=== PATIENT | male | born 1995 | race Caucasian/White ===

== ENCOUNTER 2017-07-11 14:32 | Emergency (ER) | payer OTHER ==
[~2017-07-11] VITALS: Ht 172.7 cm; Wt 89.6 kg
[2017-07-11 14:55] VITALS: BP 156/103; PULSE 96; TEMP 37.1; O2SAT 99; Ht 172.7 cm; Wt 89.6 kg
== END 2017-07-11 16:30 | disposition left against medical advice (07) ==
LOC: C.EDB 14:34

== ENCOUNTER 2017-07-15 13:02 | Emergency (ER) | payer OTHER ==
[~2017-07-15] VITALS: Ht 172.7 cm; Wt 87.1 kg
[2017-07-15 13:07] VITALS: TEMP 36.8; Ht 172.7 cm; Wt 87.1 kg
[2017-07-15] MEDS ORDERED: SODIUM CHLORIDE 0.9% 1000ML 1,000 ML IV STA (13:34)
[2017-07-15] MEDS ORDERED: ACETAMINOPHEN IV 100 ML IV STA (13:34)
[2017-07-15] MEDS ORDERED: ONDANSETRON INJ 2 MG/ML 2 ML VIAL IV STA (13:34)
[2017-07-15 14:07] LABS: BASO % 0.3 %; BASO ABS # 0.03 K/uL (0-0.2); EOS % 0.3 %; EOS ABS # 0.04 K/uL (0-0.5); HEMATOCRIT 46.7 % (42-52); IG# 0.03 K/uL (0.00-0.02); LYMPH % 11.7 %; LYMPH ABS # 1.37 K/uL (1.2-3.4); MEAN CELL VOLUME 83.8 fL (80-100); MEAN CORPUSCULAR HEMOGLOBIN 30.5 pg (25-34); MEAN CORPUSCULAR HGB CONC 36.4 g/dl (32-36); MEAN PLATELET VOLUME 9.4 fL (7.4-10.4); MONO ABS # 0.94 K/uL (0.11-0.59); NEUT % 79.4 %; NEUT ABS # 9.28 K/uL (1.4-6.5); PLATELET COUNT 185 K/uL (130-400); RED CELL DISTRIBUTION WIDTH CV 12.5 % (11.5-14.5); RED CELL DISTRIBUTION WIDTH SD 37.7 fL (36.4-46.3); WHITE BLOOD COUNT 11.69 K/uL (4.8-10.8)
--- NOTE | 2017-07-15 14:11 | EMERGENCY ROOM VISIT NOTE ---
ED Visit Note First contact with patient: 13:13 CHIEF COMPLAINT: Right upper quadrant pain and rectal pain HISTORY OF PRESENTING ILLNESS: This is a 22-year-old male who presents emergency department with complaint of right upper quadrant pain and rectal pain. He states that he was in [place] for spring last week, he started getting some symptoms of nausea, vomiting, and diarrhea on Monday night. His right upper quadrant pain also started at that time and has gotten progressively worse. He states that his vomiting and diarrhea have improved and he has not had any for the past 3 days. However, for the past few days he has noticed some pressure and pain in his rectum, this has gotten significantly worse since yesterday to the point that he cannot sit down and has severe pain when he tries to move his bowels. He states that he did use a suppository to help with rectal pain, but denies any other anal penetration. He denies any lower abdominal pain. He denies any blood in the stool. He reports the pain in his rectum is sharp, constant, 9/10. He reports his right upper quadrant abdominal pain is constant, dull ache, worse with eating, 5/10. He has taken aspirin for his symptoms with minimal relief. He has had some associated chills , but denies any fevers. 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 He states that he is monitored by a GI specialist in his home country of [place], and does not take any medications currently. He denies any new medications. He does admit to drinking more alcohol than usual during spring. He states he ate a lot of local food, but his friends with him ate all of the same food that he did and they did not become ill. He denies any headaches, vision changes, neck pain or stiffness, chest pain, shortness of breath, dysuria or urinary frequency , penile discharge, or rash. He denies concern for sexually transmitted infections. REVIEW OF SYSTEMS: A complete 10 point review of systems was reviewed with the patient with pertinent positives and negatives as per history of present illness. All else were negative. PAST MEDICAL HISTORY: Hepatitis SOCIAL HISTORY: Lives at home. He is a [employer] student from [place]. He vapes, admits to occasional alcohol, denies any recreational drug use. ALLERGIES: No known allergies. PHYSICAL EXAM: CONSTITUTIONAL: Pleasant and cooperative. No acute distress, but appears uncomfortable and in pain. Mildly dehydrated, but otherwise well appearing and well nourished. HEENT: Normocephalic, atraumatic. Pupils equal, round and reactive to light, EOMI. TMs normal. Pharynx normal. Tacky mucous membranes. NECK: Supple, full active range of motion without discomfort. RESPIRATORY: Clear to auscultation bilaterally with no wheezing, crackles, rhonchi or stridor. Equal expansion bilaterally. CARDIOVASCULAR: Regular rate and rhythm with no murmurs, rubs or gallops. Normal peripheral perfusion. No edema. GASTROINTESTINAL: Soft, mildly tender in the right upper quadrant and epigastric region, otherwise abdomen is nontender to palpation, nondistended. No rebound tenderness or guarding. No palpable masses or HSM. Bowel sounds present in all quadrants. No CVA tenderness. DIGITAL RECTAL EXAM: There is an area of swelling, erythema, and tenderness to palpation extending from the anus, fluctuant. Fluctuance and tenderness slightly extends internally. No hemorrhoids or fissures. Prostate is not tender to palpation, not boggy or enlarged. No stool within the rectum to test for guaiac. Normal rectal tone. MUSCULOSKELETAL: Full range of motion of all joints without discomfort. INTEGUMENTARY: No rash or other significant dermatologic conditions noted. NEUROLOGIC: Alert and oriented X 4 with normal affect. No focal neurologic deficits noted. Normal strength and sensation in all 4 extremities. Normal speech. Normal gait observed. ED COURSE AND MEDICAL DECISION MAKING: CC: Patient presenting with complaint of right upper quadrant abdominal pain and rectal pain DIFFERENTIAL DIAGNOSIS: Includes, but not limited to gastroenteritis, gastritis , peptic ulcer disease, hepatitis, cholecystitis, cholelithiasis, pancreatitis, food poisoning, intestinal parasite, hemorrhoid, anal fissure, alejandra-analrectal abscess, prostatitis, UTI, intra-abdominal abscess, among others. INTERPRETATION OF LABS: Mild leukocytosis with left shift, no anemia, no significant electrolyte abnormalities, normal renal function, normal liver enzymes and lipase. UA consistent with dehydration, otherwise negative. IMAGING: ABD/PELVIS IV CONTRAST ONLY CT DOSE: 491.21 mGy.cm HISTORY: Pain concern for perirectal abscess, prostatitis, hepatitis TECHNIQUE: Multiaxial CT images of the abdomen and pelvis were performed following the use of intravenous contrast. A dose lowering technique was utilized adhering to the principles of ALARA. COMPARISON STUDY: None. FINDINGS: The lung bases are clear. The liver, spleen, gallbladder, pancreas, kidneys, and adrenal glands are within normal limits. No bowel wall thickening or obstruction. The pelvic organs are unremarkable. No suspicious lytic or blastic osseous lesions. Moderate wall thickening of the rectum with a trace amount of perirectal infiltrative change near the anal verge. There are findings of a 1.3 x 1.0 hypodensity adjacent to the anal verge in a left central position. Possibility of a small perirectal abscess is considered. Minimal soft tissue cellulitis of the surrounding fat is present on the left. IMPRESSION: 1. Mild left perirectal infiltrative changes of the subcutaneous fat with a small 1.3 x 1.0 cm perirectal collection seen in a left central location. 2. This suggests the possibility of a small perirectal abscess. 3. Remainder the study is unremarkable. 4. Normal appendix. 5. Nonobstructive bowel pattern. MEDICATION RECONCILIATION: I attest that I have personally reviewed the patient 's current medication list. INITIAL VITAL SIGNS REVIEW: I reviewed the patient's initial vital signs and interpret them as follows: T: Afebrile; BP: Hypertensive; HR: Tachycardic; RR : Within normal limits; Pulse Ox: Within normal limits on room air. Blood pressure screening: The patient was found to have an elevated blood pressure, which was felt to be situational. SUMMARY: Patient was evaluated at bedside, history and physical exam performed. Patient is alert and oriented, no acute distress but does appear to be uncomfortable and in pain, resting in the stretcher. Patient has mild discomfort and tenderness to palpation in the right upper quadrant on exam. Rectal exam reveals an area of swelling, erythema, and fluctuance that is suspicious for perirectal abscess. Fluctuance and tenderness extends internally within the rectum. I doubt this is a hemorrhoid. Review of the patient's chart reveals that he did check in at this emergency department on 07/11, but left without being seen. He states he went to an urgent care where they did blood work, but he does not know what that showed. Orders were placed at bedside for labs, UA, stool O&P, IV fluids for hydration, CT abdomen/pelvis with IV contrast to evaluate for abscess/intra-abdominal infection. The patient was offered something for pain, he prefers not to have any narcotics. Will avoid Toradol as this may be a surgical problem. Patient was given IV Tylenol. Patient discussed with Dr. Saldaña, who agrees with my assessment and plan. Labs and imaging reviewed as above, noting a small perirectal abscess that correlate with clinical findings. I spoke with the general surgery team, Tori Jc PA-C, who evaluated the patient. She spoke with Dr. Mandel, who recommended she attempt I&D at the bedside. MADHU Jc performed I&D of the perirectal abscess in the room at bedside, please see her note for further details. She reports that the patient tolerated without complications. She did not place packing within the wound. She did arrange for the patient to follow-up with her in clinic for recheck in 2 days. Patient reassessed multiple times throughout ED stay, he remains well-appearing and nontoxic, and reports his pain is well controlled with IV Tylenol and fentanyl. Patient was given a dose of Bactrim here per request of the general surgery team , and will be sent home with Rx for Bactrim and tramadol as needed for pain. Patient was updated on all results and plan for discharge, and was encouraged to keep his appointment for follow-up on Monday. Patient was also given strict return precautions should his symptoms worsen, he verbalized understanding. Patient was discharged home in stable condition and ambulatory. Current/Historical Medications Scheduled Docusate Sodium (Colace), 1 CAP PO BID Sulfa/Trimethoprim (Bactrim Ds 800MG/160MG), 1 TAB PO BID Scheduled PRN Ibuprofen Tab (Motrin), 800 MG PO Q8H PRN for Pain Tramadol (Ultram), 50 MG PO Q6H PRN for Pain Allergies Coded Allergies: No Known Allergies (Unverified , 07/16/17) Vital Signs Date Time Temp Pulse Resp B/P (MAP) Pulse Ox O2 Delivery O2 Flow Rate FiO2 07/15/17 18:22 92 16 140/81 96 Room Air 07/15/17 17:00 106 16 157/95 98 Room Air 07/15/17 15:18 102 20 154/91 99 Room Air 07/15/17 14:03 98 07/15/17 13:07 36.8 111 20 158/104 97 Room Air Laboratory Results 07/15/17 13:55 Red Blood Count 5.57, Mean Corpuscular Volume 83.8, Mean Corpuscular Hemoglobin 30.5, Mean Corpuscular Hemoglobin Concent 36.4, Mean Platelet Volume 9.4, Neutrophils (%) (Auto) 79.4, Lymphocytes (%) (Auto) 11.7, Monocytes (%) (Auto) 8.0, Eosinophils (%) (Auto) 0.3, Basophils (%) (Auto) 0.3, Neutrophils # (Auto) 9.28, Lymphocytes # (Auto) 1.37, Monocytes # (Auto) 0.94, Eosinophils # (Auto) 0.04, Basophils # (Auto) 0.03 07/15/17 13:55 Test 07/15/17 13:55 07/15/17 15:20 White Blood Count 11.69 K/uL (4.8-10.8) Red Blood Count 5.57 M/uL (4.7-6.1) Hemoglobin 17.0 g/dL (14.0-18.0) Hematocrit 46.7 % (42-52) Mean Corpuscular Volume 83.8 fL (80-100) Mean Corpuscular Hemoglobin 30.5 pg (25-34) Mean Corpuscular Hemoglobin Concent 36.4 g/dl (32-36) Platelet Count 185 K/uL (130-400) Mean Platelet Volume 9.4 fL (7.4-10.4) Neutrophils (%) (Auto) 79.4 % Lymphocytes (%) (Auto) 11.7 % Monocytes (%) (Auto) 8.0 % Eosinophils (%) (Auto) 0.3 % Basophils (%) (Auto) 0.3 % Neutrophils # (Auto) 9.28 K/uL (1.4-6.5) Lymphocytes # (Auto) 1.37 K/uL (1.2-3.4) Monocytes # (Auto) 0.94 K/uL (0.11-0.59) Eosinophils # (Auto) 0.04 K/uL (0-0.5) Basophils # (Auto) 0.03 K/uL (0-0.2) RDW Standard Deviation 37.7 fL (36.4-46.3) RDW Coefficient of Variation 12.5 % (11.5-14.5) Immature Granulocyte % (Auto) 0.3 % Immature Granulocyte # (Auto) 0.03 K/uL (0.00-0.02) Anion Gap 5.0 mmol/L (3-11) Est Creatinine Clear Calc Drug Dose 119.3 ml/min Estimated GFR () 116.5 Estimated GFR (Non- 100.5 BUN/Creatinine Ratio 8.1 (10-20) Calcium Level 9.8 mg/dl (8.5-10.1) Total Bilirubin 1.0 mg/dl (0.2-1) Direct Bilirubin 0.3 mg/dl (0-0.2) Aspartate Amino Transf (AST/SGOT) 23 U/L (15-37) Alanine Aminotransferase (ALT/SGPT) 92 U/L (12-78) Alkaline Phosphatase 95 U/L (45-117) Total Protein 9.0 gm/dl (6.4-8.2) Albumin 4.3 gm/dl (3.4-5.0) Lipase 98 U/L (73-393) Urine Color YELLOW Urine Appearance CLEAR (CLEAR) Urine pH 8.0 (4.5-7.5) Urine Specific [place] 1.040 (1.000-1.030) Urine Protein NEG (NEG) Urine Glucose (UA) NEG (NEG) Urine Ketones TRACE (NEG) Urine Occult Blood NEG (NEG) Urine Nitrite NEG (NEG) Urine Bilirubin NEG (NEG) Urine Urobilinogen NEG (NEG) Urine Leukocyte Esterase NEG (NEG) Medications Administered Medications (Trade) Dose Ordered Sig/Kaylah Route Start Time Stop Time Status Last Admin Dose Admin Sodium Chloride 1,000 ml @ 999 mls/hr Q1H1M STAT IV 07/15/17 13:34 07/15/17 14:34 DC 07/15/17 13:58 999 MLS/HR Ondansetron HCl (Zofran Inj) 4 mg NOW STAT IV 07/15/17 13:34 07/15/17 13:41 DC 07/15/17 13:57 4 MG Acetaminophen 100 ml @ 400 mls/hr NOW STAT IV 07/15/17 13:34 07/15/17 13:48 DC 07/15/17 13:57 400 MLS/HR Fentanyl Citrate (Fentanyl Inj) 100 mcg NOW STAT IV 07/15/17 17:13 07/15/17 17:15 DC 07/15/17 17:40 100 MCG Trimethoprim/ Sulfamethoxazole (Septra Ds 800/ 160MG Tab) 1 tab NOW STAT PO 07/15/17 18:17 07/15/17 18:18 DC 07/15/17 18:21 1 TAB Tramadol HCl (Ultram Home Pack) 1 homepack UD ONCE PO 07/15/17 18:45 07/15/17 18:46 DC 07/15/17 18:45 1 HOMEPACK Departure Information Impression Primary Impression: Perirectal abscess Dispostion Home / Self-Care Condition GOOD Prescriptions Tramadol (Ultram) 50 Mg Tab 50 MG PO Q6H Y for Pain for 3 Days, #12 TAB Prov: Smitha Bryson, REEL CART OPERATOR 07/15/17 Sulfa/Trimethoprim (Bactrim Ds 800MG/160MG) Tab 1 TAB PO BID for 7 Days, #14 TAB Prov: Smitha Bryson CRNP 07/15/17 Referrals [facility] (PCP) Tori Jc, MADHU Patient Instructions ED Alejandra Anal Abscess [facility]ust[facility] Additional Instructions You have been evaluated and treated in the Emergency Department your rectal abscess. You should perform frequent sitz baths for the next few days as instructed. You have been prescribed tramadol to be used as needed for SEVERE pain. You may take 1 tablet every 6 hours as needed. This medication may make you drowsy , do not drive, operate machinery, or drink alcohol while you are taking it. You were prescribed Bactrim to be taken twice a day for 7 days. This is an antibiotic to treat your infection. All antibiotics have the potential to cause diarrhea, start taking a daily probiotic or eating yogurt every day to help prevent this. Stop this medication and contact a medical provider if you were to develop any significant adverse side effects including: wheezing, shortness of breath, passing out, vomiting, or a diffuse rash. Always take antibiotics as directed and COMPLETE the ENTIRE course regardless of the improvement of your symptoms. For pain control, you can use the following [id number] medicines (if >12 yo): - Regular strength (325mg/tab) Tylenol (acetaminophen) 2 tabs every 4-6 hours as needed. Do not exceed 10 tablets in a 24 hour period. Avoid taking more than 3000 mg of Tylenol per day. This includes any other sources of acetaminophen you may take on a regular basis. - Regular strength (200 mg/tab) Advil (ibuprofen) 3 tabs every 6-8 hours as needed. Do not exceed a dose of 2400 mg per day. Drink plenty of fluids to stay well hydrated. Increase fiber rich foods like fruits and vegetables in your diet to help reduce chances of constipation. May also take an [id number] stool softener such as Colace or senna to help bowel movements passed more easily. You have been scheduled Monday, July 17, 2017 at 2pm at: [facility] [address] [place] [address] Please keep this appointment. Return to the emergency department for severe worsening abdominal or back pain, worsening nausea/vomiting, large amounts of foul discharge from your wound, blood in your stool, fevers > 101.5, severe dizziness or passing out, or any other concerns. School Instructions Return To School: 3 days
[2017-07-15] MEDS ORDERED: OPTIRAY 320 IV PRN (14:15)
[2017-07-15 14:24] LABS: ALBUMIN 4.3 gm/dl (3.4-5.0); CALCIUM 9.8 mg/dl (8.5-10.1); CREATININE 1.06 mg/dl (0.60-1.40); POTASSIUM 3.8 mmol/L (3.5-5.1)
--- NOTE | 2017-07-15 15:27 | DIAGNOSTIC IMAGING REPORT ---
ABD/PELVIS IV CONTRAST ONLY CT DOSE: 491.21 mGy.cm HISTORY: Pain concern for perirectal abscess, prostatitis, hepatitis TECHNIQUE: Multiaxial CT images of the abdomen and pelvis were performed following the use of intravenous contrast. A dose lowering technique was utilized adhering to the principles of ALARA. COMPARISON STUDY: None. FINDINGS: The lung bases are clear. The liver, spleen, gallbladder, pancreas, kidneys, and adrenal glands are within normal limits. No bowel wall thickening or obstruction. The pelvic organs are unremarkable. No suspicious lytic or blastic osseous lesions. Moderate wall thickening of the rectum with a trace amount of perirectal infiltrative change near the anal verge. There are findings of a 1.3 x 1.0 hypodensity adjacent to the anal verge in a left central position. Possibility of a small perirectal abscess is considered. Minimal soft tissue cellulitis of the surrounding fat is present on the left. IMPRESSION: 1. Mild left perirectal infiltrative changes of the subcutaneous fat with a small 1.3 x 1.0 cm perirectal collection seen in a left central location. 2. This suggests the possibility of a small perirectal abscess. 3. Remainder the study is unremarkable. 4. Normal appendix. 5. Nonobstructive bowel pattern. The above report was generated using voice recognition software. It may contain grammatical, syntax or spelling errors. Electronically signed by: Moisés Joaquin M.D. 07/15/2017 3:26 PM Dictated Date/Time: 07/15/2017 3:22 PM
[2017-07-15] MEDS ORDERED: FENTANYL CITRATE INJ 50 MCG/1 ML 2 ML VIAL IV STA (17:13)
[2017-07-15] MEDS ORDERED: XYLOCAINE 1%/SOD BICARB 20 ML VIAL INFIL ONE (17:46)
[2017-07-15] MEDS ORDERED: SULF800T23 PO (18:16)
[2017-07-15] MEDS ORDERED: TRAM-10 PO (18:16)
[2017-07-15] MEDS ORDERED: SULFAMETHOXAZOLE/TRIMETHOPRIM DS 800/160MG TAB PO STA (18:17)
--- NOTE | 2017-07-15 18:19 | Medical Consult ---
Consultation Date of Consultation: Jul 15, 2017. Attending Physician: Reason for Consultation: Perirectal Abscess History of Present Illness Mr. Álvarez is a 22-year-old male who presented to [facility] ED for evaluation of right upper quadrant abdominal pain and rectal pain. Patient was recently to [place] for spring. He states that he developed nausea, vomiting, abdominal pain and diarrhea approximately 1 week ago that has since resolved. He states that 4 days ago he developed rectal pain, which he had attributed to the diarrhea. He states that he noticed a lump near his anus that has continued to become larger and more painful. He denies fever or chills. He states that he moved his bowels this morning, which caused extreme discomfort. Social History Smoking Status: Never Smoker Occupation Status: [employer] student Allergies Coded Allergies: No Known Allergies (Unverified , 07/15/17) Current Inpatient Medications Current Inpatient Medications Medications (Trade) Dose Ordered Sig/Kaylah Route Start Time Stop Time Status Last Admin Dose Admin Ioversol (Optiray 320) 111 ml UD PRN IV 07/15/17 14:15 07/19/17 14:14 Review of Systems + Rectal pain Constitutional: No fever, No chills Physical Exam Date Time Temp Pulse Resp B/P (MAP) Pulse Ox O2 Delivery O2 Flow Rate FiO2 07/15/17 17:00 106 16 157/95 98 Room Air 07/15/17 15:18 102 20 154/91 99 Room Air 07/15/17 14:03 98 07/15/17 13:07 36.8 111 20 158/104 97 Room Air General Appearance: WD/WN, no apparent distress Head: normocephalic, atraumatic Abdomen/GI: + pertinent finding (patient has tender, palpable area of fluctuance near anus. No drainage noted on physical examination. ) Laboratory Results Last 24 Hours Test 07/15/17 13:55 07/15/17 15:20 White Blood Count 11.69 K/uL Red Blood Count 5.57 M/uL Hemoglobin 17.0 g/dL Hematocrit 46.7 % Mean Corpuscular Volume 83.8 fL Mean Corpuscular Hemoglobin 30.5 pg Mean Corpuscular Hemoglobin Concent 36.4 g/dl Platelet Count 185 K/uL Mean Platelet Volume 9.4 fL Neutrophils (%) (Auto) 79.4 % Lymphocytes (%) (Auto) 11.7 % Monocytes (%) (Auto) 8.0 % Eosinophils (%) (Auto) 0.3 % Basophils (%) (Auto) 0.3 % Neutrophils # (Auto) 9.28 K/uL Lymphocytes # (Auto) 1.37 K/uL Monocytes # (Auto) 0.94 K/uL Eosinophils # (Auto) 0.04 K/uL Basophils # (Auto) 0.03 K/uL RDW Standard Deviation 37.7 fL RDW Coefficient of Variation 12.5 % Immature Granulocyte % (Auto) 0.3 % Immature Granulocyte # (Auto) 0.03 K/uL Sodium Level 135 mmol/L Potassium Level 3.8 mmol/L Chloride Level 102 mmol/L Carbon Dioxide Level 28 mmol/L Anion Gap 5.0 mmol/L Blood Urea Nitrogen 9 mg/dl Creatinine 1.06 mg/dl Est Creatinine Clear Calc Drug Dose 119.3 ml/min Estimated GFR () 116.5 Estimated GFR (Non- 100.5 BUN/Creatinine Ratio 8.1 Random Glucose 96 mg/dl Calcium Level 9.8 mg/dl Total Bilirubin 1.0 mg/dl Direct Bilirubin 0.3 mg/dl Aspartate Amino Transf (AST/SGOT) 23 U/L Alanine Aminotransferase (ALT/SGPT) 92 U/L Alkaline Phosphatase 95 U/L Total Protein 9.0 gm/dl Albumin 4.3 gm/dl Lipase 98 U/L Urine Color YELLOW Urine Appearance CLEAR Urine pH 8.0 Urine Specific [place] 1.040 Urine Protein NEG Urine Glucose (UA) NEG Urine Ketones TRACE Urine Occult Blood NEG Urine Nitrite NEG Urine Bilirubin NEG Urine Urobilinogen NEG Urine Leukocyte Esterase NEG CT Abdomen/Pelvis IMPRESSION: 1. Mild left perirectal infiltrative changes of the subcutaneous fat with a small 1.3 x 1.0 cm perirectal collection seen in a left central location. 2. This suggests the possibility of a small perirectal abscess. 3. Remainder the study is unremarkable. 4. Normal appendix. Assessment & Plan 22-year-old male with 4 day history of rectal pain; CT scan reveals a small 1.3 x 1.0 cm perirectal collection seen in a left central location. Patient discussed with Dr. Mandel. Recommend I and D of abscess at bedside. Risks of procedure discussed with patient including, but not limited to bleeding, infection, injury. Patient verbalized understanding and agreement with plan. Consent obtained. Incision and Drainage of perirectal abscess- patient tolerated procedure without complication. ED physician will discharge patient with antibiotic and pain medication. Patient to follow-up in General Surgery clinic on 07/17/2017 at 2PM.
[2017-07-15 18:22] VITALS: BP 140/81; PULSE 92; O2SAT 96
[2017-07-15] MEDS ORDERED: TRAMADOL HCL 50 MG HOME PACK PO ONE (18:45)
[2017-07-16] MEDS ORDERED: DOCU-94 PO (11:44)
[2017-07-16] MEDS ORDERED: IBUP-1451 PO (11:44)
== END 2017-07-15 19:03 | disposition home or self-care (01) ==
LOC: C.EDB 13:04 → C.EDC 19:03
DX: K61.1 Rectal abscess (principal)

== ENCOUNTER 2017-07-16 10:34 | Emergency (ER) | payer OTHER ==
[~2017-07-16 10:34] MED LIST: SULF800T23 PO; TRAM-10 PO
[2017-07-16 10:38] VITALS: TEMP 36.7; Ht 172.7 cm
[2017-07-16] MEDS ORDERED: IBUPROFEN 800 MG TAB PO STA (11:11)
[2017-07-16] MEDS ORDERED: NON-FORMULARY MEDICATION STA (11:11)
[2017-07-16] MEDS ORDERED: DOCUSATE SODIUM 100 MG CAP PO ONE (11:15)
--- NOTE | 2017-07-16 11:16 | EMERGENCY ROOM VISIT NOTE ---
History Report prepared by Bobo: Tyree Moctezuma Under the Supervision of: Dr. Bashir Decker M.D. First contact with patient: 10:44 Chief Complaint: RECTAL PAIN Stated Complaint: BLEEDING AFTER MINOR OPERATION,CANNOT PASS STOOL History of Present Illness The patient is a 22 year old male who presents to the Emergency Room with complaints of worsening rectal pain that began yesterday. Patient states that he was in the ER yesterday to have a rectal abscess removed. Patient states that he tried passing stool prior to arrival today. He states that the rectal pain came on and he noticed that the toilet "had filled with blood". He denies any stools being in the toilet. Patient states that he used a Sitz bath right before trying to pass stool. He denies using stool softeners. He states that his stools are "usually very soft anyway". Patient states that he has been eating and drinking okay. He states that he has been "eating salads" to try and soften his stools. Patient states that he took Tramadol 3 hours ago but that it did not relieve his symptoms. Patient denies use of any antibiotics. Patient adds that he had a fever of 99.8 last night. He denies lightheadedness, nausea, vomiting, and shortness of breath. He denies any medical problems. Source of History: patient Onset: Yesterday Position: other (Rectum) Timing: worsening Modifying Factors (Worsening): other (Passing stool) Modifying Factors (Relieving): other (None) Associated Symptoms: + fevers, No SOB, No nausea, No vomiting Note: Patient denies lightheadedness. Review of Systems See HPI for pertinent positives and negatives. A total of ten systems were reviewed and were otherwise negative. Past Medical & Surgical Medical Problems: (1) Rectal abscess Family History No pertinent family history. Social History Smoking Status: Never Smoker Occupation Status: [employer] student Current/Historical Medications Scheduled Docusate Sodium (Colace), 1 CAP PO BID Sulfa/Trimethoprim (Bactrim Ds 800MG/160MG), 1 TAB PO BID Scheduled PRN Ibuprofen Tab (Motrin), 800 MG PO Q8H PRN for Pain Tramadol (Ultram), 50 MG PO Q6H PRN for Pain Allergies Coded Allergies: No Known Allergies (Unverified , 07/16/17) Physical Exam Vital Signs Date Time Temp Pulse Resp B/P (MAP) Pulse Ox O2 Delivery O2 Flow Rate FiO2 07/16/17 12:06 86 20 143/95 100 Room Air 07/16/17 10:38 36.7 118 20 147/103 100 Room Air Physical Exam GENERAL: Awake, alert, uncomfortable appearing, in no distress HENT: Normocephalic, atraumatic. Oropharynx unremarkable. Dry mucous membranes. EYES: Normal conjunctiva. Sclera non-icteric. NECK: Supple. No nuchal rigidity. FROM. No JVD. RESPIRATORY: Clear to auscultation. CARDIAC: Regular rate, normal rhythm. Extremities warm and well perfused. Pulses equal. ABDOMEN: Soft, non-distended. No tenderness to palpation. No rebound or guarding. No masses. RECTAL: Perirectal area of induration and tenderness at the 9 o clock position. No active bleeding. MUSCULOSKELETAL: Chest examination reveals no tenderness. The back is symmetrical on inspection without obvious abnormality. There is no CVA tenderness to palpation. No joint edema. LOWER EXTREMITIES: Calves are equal size bilaterally and non-tender. No edema. No discoloration. NEURO: Normal sensorium. No sensory or motor deficits noted. SKIN: No rash or jaundice noted. Medical Decision & Procedures Medications Administered Medications (Trade) Dose Ordered Sig/Kaylah Route Start Time Stop Time Status Last Admin Dose Admin Ibuprofen (Motrin Tab) 800 mg NOW STAT PO 07/16/17 11:11 07/16/17 11:22 DC 07/16/17 12:00 800 MG Docusate Sodium (coLACE CAP) 100 mg NOW ONCE PO 07/16/17 11:15 07/16/17 11:22 DC 07/16/17 11:59 100 MG Trimethoprim/ Sulfamethoxazole (Sulfameth/ Trimeth Ds 800/ 160MG Home Pack) 1 homepack NOW STAT PO 07/16/17 11:48 07/16/17 11:50 DC 07/16/17 11:59 1 HOMEPACK Trimethoprim/ Sulfamethoxazole (Septra Ds 800/ 160MG Tab) 1 tab NOW STAT PO 07/16/17 11:48 07/16/17 11:50 DC 07/16/17 11:59 1 TAB ED Course 1054: The patient was evaluated in room B5. A complete history and physical exam was performed. 1201: I reevaluated the patient. Discussed results and discharge instructions. He verbalized understanding and agreement. The patient is ready for discharge. Medical Decision I reviewed the patient's past medical history, medications, and the nursing notes as described above. The patient's presentation and history were concerning for perianal abscess, perirectal fissure, and cellulitis. The patient is a 22-year-old gentleman who presents emergency department with worsening rectal pain and rectal bleeding when attempting have a bowel movement in the setting of having an incision and drainage by surgery yesterday in the emergency department for a alejandra-rectal abscess per hpi. On arrival the patient is uncomfortable but no acute distress, afebrile, heart rate in the 110s secondary to pain and vital signs otherwise stable. Onxam the patient has an area of induration at the 9 o'clock position perirectally consistent with the previously incised abscess with no active bleeding. I discussed the case with Tori Cole general surgery MADHU, who agrees with plan for stool softener and rectal nitroglycerin for pain related to spasm. She will see the patient tomorrow in the clinic at 2 PM. Findings and plan for follow-up reviewed with patient. Patient agreeable and d/c'd per discharge instructions. Medication Reconcilliation Current Medication List: was personally reviewed by me Blood Pressure Screening Patient's blood pressure: Elevated blood pressure Blood pressure disposition: Elevated BP felt to be situational Consults Time Called: 1112 Consulting Physician: Tori Jc PA-C - [facility] General Surgery Returned Call: [phone] I discussed the patient with Tori Jc PA-C. Impression Primary Impression: Alejandra-rectal abscess Scribe Attestation The scribe's documentation has been prepared under my direction and personally reviewed by me in its entirety. I confirm that the note above accurately reflects all work, treatment, procedures, and medical decision making performed by me. Departure Information Dispostion Home / Self-Care Prescriptions Docusate Sodium (COLACE) 100 Mg Cap 1 CAP PO BID for 15 Days, #30 CAP Prov: Bashir Decker M.D. 07/16/17 Ibuprofen Tab (MOTRIN) 800 Mg Tab 800 MG PO Q8H Y for Pain for 7 Days, #21 TAB Prov: Bashir Decker M.D. 07/16/17 Referrals [facility] (PCP) Moe Mandel D.O. Forms HOME CARE DOCUMENTATION FORM, IMPORTANT VISIT INFORMATION, WORK / SCHOOL INSTRUCTIONS Patient Instructions Drainage Abscess, My [facility], Sitz Bath Additional Instructions Please follow up with your surgery team tomorrow for re-evaluation. Acetaminophen or ibuprofen for pain and fevers as needed. Tramadol as prescribed for breakthrough pain. Colace to keep stools soft and minimize pain. Nitroglycerin ointment applied intra-anally every 12 hours to minimize pain associated with anal spasm. Continue your antibiotics as prescribed. Sitz bath 2-3 times daily. Drink plenty of fluids to ensure hydration. Return to the emergency department for worsening symptoms as described in the accompanying instructions.
[2017-07-16] MEDS ORDERED: DOCU-94 PO (11:44)
[2017-07-16] MEDS ORDERED: IBUP-1451 PO (11:44)
[2017-07-16] MEDS ORDERED: NITROGLYCERIN 2% EXT PRN ×2 (11:45)
[2017-07-16] MEDS ORDERED: AQUAPHOR EXT PRN ×2 (11:45)
[2017-07-16] MEDS ORDERED: IDENTIFIER EXT PRN ×2 (11:45)
[2017-07-16] MEDS ORDERED: SULFAMETHOXAZOLE/TRIMETHOPRIM DS 800/160MG TAB PO STA (11:48)
[2017-07-16] MEDS ORDERED: SEPTRA DS HOME PACK 1 EA VIAL PO STA (11:48)
[2017-07-16 12:06] VITALS: BP 143/95; PULSE 86; O2SAT 100
== END 2017-07-16 12:31 | disposition home or self-care (01) ==
LOC: C.EDB 10:35
DX: K61.1 Rectal abscess (principal); R03.0 Elevated blood-pressure reading, without diagnosis of hypertension; Z98.890 Other specified postprocedural states